=== PATIENT | male | born 1995 | race Caucasian/White ===

== ENCOUNTER 2019-03-14 22:38 | Emergency (ER) | payer OTHER ==
[2019-03-14 22:58] VITALS: BP 127/65; PULSE 89; TEMP 98.2; BMI 56.4
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
== END 2019-03-14 23:26 | disposition home or self-care (01) ==
LOC: JER 22:38
DX: S76.301A Unspecified injury of muscle, fascia and tendon of the posterior muscle group at thigh level, right thigh, initial encounter (principal); S80.11XA Contusion of right lower leg, initial encounter; S80.211A Abrasion, right knee, initial encounter; Y35.811A Legal intervention involving manhandling, law enforcement official injured, initial encounter; W18.39XA Other fall on same level, initial encounter; Y93.89 Activity, other specified; Y92.89 Other specified places as the place of occurrence of the external cause; Y99.0 Civilian activity done for income or pay
CPT/HCPCS: 73562-TC-RT-FY; 99281-25

== ENCOUNTER 2019-05-11 16:15 | Emergency (ER) | payer OTHER ==
[2019-05-11 16:33] VITALS: BP 128/90; PULSE 91; TEMP 98.8; BMI 25.0
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
== END 2019-05-11 17:00 | disposition home or self-care (01) ==
LOC: JER 16:15 → JERFT 16:15
DX: Z77.21 Contact with and (suspected) exposure to potentially hazardous body fluids (principal); Y35.891A Legal intervention involving other specified means, law enforcement official injured, initial encounter; Y93.89 Activity, other specified; Y92.89 Other specified places as the place of occurrence of the external cause; Y99.0 Civilian activity done for income or pay
CPT/HCPCS: 99281-25

== ENCOUNTER 2019-06-03 16:51 | Emergency (ER) | payer OTHER ==
[2019-06-03 16:59] VITALS: BP 120/74; PULSE 82; TEMP 97.9; BMI 26.4
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
== END 2019-06-03 17:41 | disposition home or self-care (01) ==
LOC: JERFT 16:51
DX: Z77.29 Contact with and (suspected) exposure to other hazardous substances (principal); X58.XXXA Exposure to other specified factors, initial encounter; Y93.89 Activity, other specified; Y92.89 Other specified places as the place of occurrence of the external cause; Y99.0 Civilian activity done for income or pay
CPT/HCPCS: 99281-25

== ENCOUNTER 2020-01-15 23:11 | Emergency (ER) | payer OTHER ==
[2020-01-15 23:18] VITALS: BP 151/93; PULSE 110; TEMP 98; BMI 26.4
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
[2020-01-15] MEDS ORDERED: DIPHTH,PERTUSS(ACELL),TET 0.5 ML DISP.SYRIN IM ONE ×2 (23:31→23:34)
== END 2020-01-15 23:44 | disposition home or self-care (01) ==
LOC: FER 23:11
PROC: 3E0234Z Introduction of Serum, Toxoid and Vaccine into Muscle, Percutaneous Approach (ICD-10-PCS; principal; 2020-01-15)
DX: S60.512A Abrasion of left hand, initial encounter (principal)
CPT/HCPCS: 90715; 99283-25

== ENCOUNTER 2020-02-21 22:45 | Emergency (ER) | payer OTHER ==
[2020-02-21 22:51] VITALS: BP 153/86; PULSE 105; TEMP 98.4; BMI 26.4
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
--- NOTE | 2020-02-22 11:40 | EKG ---
Test Reason : Blood Pressure : / mmHG Vent. Rate : 087 BPM Atrial Rate : 087 BPM P-R Int : 164 ms QRS Dur : 096 ms QT Int : 362 ms P-R-T Axes : 063 095 034 degrees QTc Int : 435 ms NORMAL SINUS RHYTHM WITH SINUS ARRHYTHMIA BORDERLINE ECG WHEN COMPARED WITH ECG OF 04-DEC-2017 09:43, NO SIGNIFICANT CHANGE WAS FOUND Confirmed by DEJAN REYES MD ([id number]) on 02/22/2020 11:40:20 AM Referred By: Confirmed By:DEJAN REYES MD
== END 2020-02-21 23:36 | disposition home or self-care (01) ==
LOC: FER 22:45
DX: R42 Dizziness and giddiness (principal); R06.02 Shortness of breath
CPT/HCPCS: 82962; 93005; 99283-25

== ENCOUNTER 2020-08-27 22:28 | Emergency (ER) | payer OTHER ==
[2020-08-27 22:37] VITALS: BP 120/70; BMI 26.4
[2020-08-27 22:45] VITALS: PULSE 90
[2020-08-27] MEDS ORDERED: IBUPROFEN 600 MG TABLET (FP) PO ONE ×2 (23:32→23:36)
== END 2020-08-27 23:47 | disposition home or self-care (01) ==
LOC: FER 22:28
DX: S39.012A Strain of muscle, fascia and tendon of lower back, initial encounter (principal); S80.02XA Contusion of left knee, initial encounter; X50.0XXA Overexertion from strenuous movement or load, initial encounter; Y04.8XXA Assault by other bodily force, initial encounter
CPT/HCPCS: 72110-TC-FY; 99283-25

== ENCOUNTER 2021-08-10 20:33 | Emergency (ER) | payer OTHER, BC ==
[2021-08-10] MEDS ORDERED: SODIUM CHLORIDE 1,000 ML IV STA (20:50)
[2021-08-10 21:01] VITALS: BP 134/69; PULSE 70; TEMP 98.6; BMI 28.3
[2021-08-10 22:55] LABS: ALBUMIN 3.6 g/dl (3.4-5.0); BILIRUBIN,TOTAL 0.7 mg/dl (0.2-1); CALCIUM 8.5 mg/dl (8.5-10); TOT PROT 5.7 g/dl (6.4-8.2)
== END 2021-08-10 23:37 | disposition home or self-care (01) ==
LOC: FER 20:33
PROC: 3E0337Z Introduction of Electrolytic and Water Balance Substance into Peripheral Vein, Percutaneous Approach (ICD-10-PCS; principal; 2021-08-10)
DX: R79.89 Other specified abnormal findings of blood chemistry (principal)
CPT/HCPCS: 36415; 80053; 82550; 82553; 99284-25

== ENCOUNTER 2022-06-28 22:09 | Emergency (ER) | payer BC, OTHER ==
[~2022-06-28 22:09] MED LIST: LIDOCAINE PATCH REMOVAL MC SCH
[2022-06-28 22:24] VITALS: BP 115/71; PULSE 78; RESP 18; TEMP 98.5; BMI 29.0
[2022-06-28] MEDS ORDERED: LIDOCAINE 5% TOPICAL PATCH TP ONE (22:46)
[2022-06-28] MEDS ORDERED: IBUPROFEN 600 MG TABLET (FP) PO ONE ×2 (22:56→23:20)
[2022-06-28] MEDS ORDERED: LIDOCAINE 5% TOPICAL PATCH ONE (22:58)
== END 2022-06-29 00:10 | disposition home or self-care (01) ==
LOC: JER 22:09
DX: S39.92XA Unspecified injury of lower back, initial encounter (principal); W50.0XXA Accidental hit or strike by another person, initial encounter
CPT/HCPCS: 72100-TC-FY; 99283-25

== ENCOUNTER 2022-12-16 19:25 | Emergency (ER) | payer OTHER ==
[2022-12-16 19:28] VITALS: BP 136/86; PULSE 86; RESP 18; TEMP 97.6; BMI 27.3
[2022-12-16] MEDS ORDERED: IBUPROFEN 600 MG TABLET (FP) PO ONE ×2 (19:44→19:46)
[2022-12-16] MEDS ORDERED: ACETAMINOPHEN 500 MG TABLET (FP) PO ONE (19:47)
[2022-12-16] MEDS ORDERED: ACETAMINOPHEN 500 MG TABLET (FP) ONE (19:48)
== END 2022-12-16 20:43 | disposition home or self-care (01) ==
LOC: JERFT 19:25
DX: S93.402A Sprain of unspecified ligament of left ankle, initial encounter (principal); M25.572 Pain in left ankle and joints of left foot; X50.1XXA Overexertion from prolonged static or awkward postures, initial encounter; Y99.0 Civilian activity done for income or pay
CPT/HCPCS: 73610-TC-LT-FY; 73630-TC-LT; 99283-25

== ENCOUNTER 2023-09-21 20:57 | Emergency (ER) | payer BC, OTHER ==
[2023-09-21 21:07] VITALS: BP 122/66; PULSE 86; RESP 16; TEMP 98.3; BMI 26.9
== END 2023-09-21 22:19 | disposition home or self-care (01) ==
LOC: FER 20:57
PROC: 0HQEXZZ Repair Left Lower Arm Skin, External Approach (ICD-10-PCS; principal; 2023-09-21)
DX: S51.012A Laceration without foreign body of left elbow, initial encounter (principal); S80.912A Unspecified superficial injury of left knee, initial encounter; X58.XXXA Exposure to other specified factors, initial encounter; Y93.22 Activity, ice hockey
CPT/HCPCS: 99282-25

== ENCOUNTER 2024-01-22 18:57 | Emergency (ER) | payer OTHER ==
[2024-01-22 19:07] VITALS: BP 134/73; PULSE 89; RESP 16; TEMP 97.8; BMI 26.6
== END 2024-01-22 20:50 | disposition home or self-care (01) ==
LOC: JERFT 18:57
DX: S39.011A Strain of muscle, fascia and tendon of abdomen, initial encounter (principal); X50.1XXA Overexertion from prolonged static or awkward postures, initial encounter
CPT/HCPCS: 99283-25